=== PATIENT | female | born 1985 | race Caucasian/White ===

== ENCOUNTER 2019-02-10 07:02 | Emergency (ER) | payer OTHER, BC ==
[2019-02-10 07:33] VITALS: BP 124/91; PULSE 88; TEMP 97.8; BMI 31.1
--- NOTE | 2019-02-10 07:59 | PDOC ---
History of Present Illness - General Chief Complaint: Back Pain Stated Complaint: LOWER LEFT SIDE BACK PAIN Time Seen by Provider: 02/10/19 07:59 History Source: Patient - History of Present Illness Occurred: reports: yesterday Severity: reports: moderate, severe Pain Location: reports: back Past History - Past Medical History Allergies/Adverse Reactions: Allergies Allergy/AdvReac Type Severity Reaction Status Date / Time No Known Allergies Allergy Verified 02/10/19 07:21 Home Medications: Ambulatory Orders Cyclobenzaprine HCl [Flexeril 10 mg] 10 mg PO TID #9 tablet 02/10/19 Ibuprofen [Motrin -] 800 mg PO Q6H #30 tablet 02/10/19 Asthma: No Cancer: No Cardiac Disorders: No COPD: No Diabetes: No HTN: No Seizures: No Thyroid Disease: No - Surgical History Abdominal Surgery: Yes (A FALLOPIAN TUBE) - Reproductive History (#): 4 Para: 1 Cervical CA: No Dysfunctional Uterine Bleeding: No Ectopic : Yes (2008 with rt salpingectomy) Endometrial CA: No Polycystic Ovaries: No Therapeutic (s) & number: Yes Tubal Ligation: No Spontaneous : 1 - Immunization History Immunization Up to Date: Yes - Suicide/Smoking/Psychosocial Hx Smoking Status: No Smoking History: Never smoked Have you smoked in the past 12 months: No Number of Cigarettes Smoked Daily: 0 Information on smoking cessation initiated: No Hx Alcohol Use: No Drug/Substance Use Hx: No Substance Use Type: None Hx Substance Use Treatment: No Review of Systems - Review of Systems Constitutional: No: Chills, Fever ABD/GI: No: Nausea, Vomiting, Abdominal cramping : No: Burning, Dysuria, Flank Pain, Hematuria Musculoskeletal: Yes: Back Pain Neurological: No: Numbness, Tingling, Weakness *Physical Exam - Vital Signs Last Vital Signs Temp Pulse Resp BP Pulse Ox 97.8 F 88 16 124/91 100 02/10/19 07:21 02/10/19 07:21 02/10/19 07:21 02/10/19 07:21 02/10/19 07:21 - Physical Exam Comments: 02/10/19 08:25 Refusing to sit in ER as worsens pain General Appearance: Yes: Appropriately Dressed, Mild Distress HEENT: positive: Normal Voice Neck: positive: Supple Respiratory/Chest: negative: Respiratory Distress Musculoskeletal: negative: CVA Tenderness, Vertebral Tenderness Integumentary: positive: Dry, Warm Neurologic: positive: Fully Oriented, Alert, Normal Mood/Affect, Motor Strength 5/5 Medical Decision Making - Medical Decision Making 02/10/19 07:59 33 yo F, no sig hx, 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 here w/ non-radiating mid lower back pain since yesterday, unable to describe, 7/10 and worse w/ movement. Took 400mg motrin yesterday w/ no relief. No trauma but states she carries her gun belt at work which weight 30 pounds. No h/o similar pain. Denies n/v/f/c, dysuria or hematuria. No h/o renal stones see exam M/l MSK back pain No red flags at this time -pain control in ED -dc w/ rx and pmd f/u as needed 02/10/19 08:23 02/10/19 08:25 *DC/Admit/Observation/Transfer Diagnosis at time of Disposition: Low back pain Qualifiers: Chronicity: acute Back pain laterality: unspecified Sciatica presence: without sciatica Qualified Code(s): M54.5 - Low back pain - Discharge Dispostion Disposition: HOME Condition at time of disposition: Good - Prescriptions Prescriptions: Cyclobenzaprine HCl [Flexeril 10 mg] 10 mg PO TID #9 tablet Ibuprofen [Motrin -] 800 mg PO Q6H #30 tablet - Referrals - Patient Instructions Printed Discharge Instructions: Low Back Pain Additional Instructions: Take medications as directed If pain persists, please follow up with your PMD - Post Discharge Activity Forms/Work/School Notes: Back to Work
[2019-02-10] MEDS ORDERED: CYCLOBENZAPRINE HCL 10 MG TABLET (FP) PO ONE (08:00)
[2019-02-10] MEDS ORDERED: KETOROLAC TROMETHAMINE 60 MG/2 ML VIAL IM ONE (08:00)
[2019-02-10] MEDS ORDERED: CYCLOBENZAPRINE HCL 10 MG TABLET (FP) ONE (08:09)
[2019-02-10] MEDS ORDERED: KETOROLAC TROMETHAMINE 60 MG/2 ML VIAL ONE (08:09)
== END 2019-02-10 08:27 | disposition home or self-care (01) ==
LOC: JER 07:02
PROC: 3E03329 Introduction of Other Anti-infective into Peripheral Vein, Percutaneous Approach (ICD-10-PCS; principal; 2019-02-10)
PROC: 3E0333Z Introduction of Anti-inflammatory into Peripheral Vein, Percutaneous Approach (ICD-10-PCS; 2019-02-10)
PROC: 3E033NZ Introduction of Analgesics, Hypnotics, Sedatives into Peripheral Vein, Percutaneous Approach (ICD-10-PCS; 2019-02-10)
DX: N39.0 Urinary tract infection, site not specified (principal)
CPT/HCPCS: 99282-25

== ENCOUNTER 2019-02-11 19:53 | Emergency (ER) | payer OTHER ==
[2019-02-11 20:03] VITALS: BMI 31.1
[2019-02-11] MEDS ORDERED: ACETAMINOPHEN 1000 MG/100 ML VIAL (NON FORMULARY) IVPB ONE (20:29)
[2019-02-11] MEDS ORDERED: SODIUM CHLORIDE 0.9% 500 ML INFUS.BAG IV ONE ×2 (20:29→21:16)
--- NOTE | 2019-02-11 20:40 | PDOC ---
History of Present Illness - General Chief Complaint: Diarrhea Stated Complaint: sore throat/earache/diarrhea Time Seen by Provider: 02/11/19 20:12 - History of Present Illness Initial Comments: 02/11/19 20:39 33-year-old female without comorbidities presents for evaluation of fever chills and body aches times one day Past History - Past Medical History Allergies/Adverse Reactions: Allergies Allergy/AdvReac Type Severity Reaction Status Date / Time No Known Allergies Allergy Verified 02/11/19 20:04 Home Medications: Ambulatory Orders Cephalexin [Keflex] 500 mg PO TID 7 Days #21 capsule 02/11/19 Asthma: No Cancer: No Cardiac Disorders: No COPD: No Diabetes: No HTN: No Seizures: No Thyroid Disease: No - Surgical History Abdominal Surgery: Yes (A FALOPIAN TUBE, ectopic) - Reproductive History (#): 4 Para: 1 Cervical CA: No Dysfunctional Uterine Bleeding: No Ectopic : Yes (2008 with rt salpingectomy) Endometrial CA: No Polycystic Ovaries: No Therapeutic (s) & number: Yes Tubal Ligation: No Spontaneous : 1 - Immunization History Immunization Up to Date: Yes - Suicide/Smoking/Psychosocial Hx Smoking Status: No Smoking History: Never smoked Have you smoked in the past 12 months: No Number of Cigarettes Smoked Daily: 0 Hx Alcohol Use: No Drug/Substance Use Hx: No Substance Use Type: None Hx Substance Use Treatment: No Review of Systems - Review of Systems Constitutional: Yes: Chills, Fever, Malaise, Night Sweats HEENTM: Yes: Ear Pain, Throat Pain, Difficulty Swallowing ABD/GI: Yes: Diarrhea *Physical Exam - Vital Signs Last Vital Signs Temp Pulse Resp BP Pulse Ox 100.7 F H 109 H 16 98/77 98 02/11/19 19:59 02/11/19 19:59 02/11/19 19:59 02/11/19 19:59 02/11/19 19:59 - Physical Exam Comments: 02/11/19 20:39 HEAD: NC/AT EYES: Conjuntiva clear Ears: Canals and TM's normal NOSE: No d/c THROAT: Moist mucous membrances, oral pharanx erythemic with exudate, uvula midline NECK: Supple without adenopathy CARDIAC: S1 S2 LUNGS: CTA Full and Equal breath sounds ABDOMEN: Soft NT ND MS: Full ROM in all joints without edema NEUROLOGIC: No gross sensory or motor deficits, NVID SKIN: Normal color and temperature no lesions or rashes ED Treatment Course - LABORATORY CBC & Chemistry Diagram: 02/11/19 20:45 02/11/19 20:45 Medical Decision Making - Medical Decision Making 02/11/19 22:38 D/W ER attending, hemodynamically stable and afebrile during d/o 02/11/19 22:40 Pt looking and feeling much improved *DC/Admit/Observation/Transfer Diagnosis at time of Disposition: UTI (urinary tract infection) - Discharge Dispostion Disposition: HOME Condition at time of disposition: Stable Decision to Admit order: No - Prescriptions Prescriptions: Cephalexin [Keflex] 500 mg PO TID 7 Days #21 capsule - Referrals Referrals: Tita Manjarrez MD [Staff Physician] - - Patient Instructions Printed Discharge Instructions: Urinary Tract Infection, DI for Urinary Tract Infection (UTI) Additional Instructions: Please take the antibiotics as directed. Return to the emergency room for worsening symptoms. Follow-up with internal medicine in one to 2 days for further evaluation and treatment options. Little and Motrin as directed for fever should you require it - Post Discharge Activity
[2019-02-11] MEDS ORDERED: ACETAMINOPHEN INJECTION 100 ML IVPB ONE (20:50)
[2019-02-11 20:56] LABS: BASO % 0.5 % (0-2.0); EOS % 0.1 % (0-4.5); HEMATOCRIT 37.2 % (32.4-45.2); HEMOGLOBIN 12.5 GM/dL (10.7-15.3); LYMPH % 6.1 % (8-40); MCH 28.6 pg (25.7-33.7); MCHC 33.6 g/dl (32.0-36.0); MEAN CELL VOLUME 85.2 fl (80-96); MEAN PLT VOLUME 8.5 fl (7.5-11.1); MONO % 4.5 % (3.8-10.2); NEUT % 88.8 % (42.8-82.8); PLATELET COUNT 221 K/MM3 (134-434); RBC 4.37 M/mm3 (3.60-5.2); RDW 16.9 % (11.6-15.6); WHITE BLOOD COUNT 14.5 K/mm3 (4.0-10.0)
[2019-02-11 20:57] LABS: EPI CELLS 10.2 /HPF (0-5/HPF); URINE APPEARANCE CLEAR; URINE BILIRUBIN NEGATIVE (NEGATIVE); URINE CASTS 15 /hpf (0-8); URINE COLOR YELLOW; URINE GLUCOSE (UA) NEGATIVE (NEGATIVE); URINE KETONE 3+ (NEGATIVE); URINE LEUK ESTERASE 1+ (NEGATIVE); URINE NITRITE NEGATIVE (NEGATIVE); URINE PROTEIN NEGATIVE (NEGATIVE); URINE RBC 6 /hpf (0-4); URINE WBC 12 /hpf (0-5)
[2019-02-11 20:58] LABS: HCG,QUALITATIVE URINE Negative
[2019-02-11] MEDS ORDERED: CEFTRIAXONE 1,000 MG in DEXTROSE 5%-WATER - 50 ML IVPB ONE (21:15)
[2019-02-11 21:17] LABS: ALBUMIN 4.1 g/dl (3.4-5.0); ALK PHOS 72 U/L (45-117); ANION GAP 8 MMOL/L (8-16); BILIRUBIN,TOTAL 0.4 mg/dL (0.2-1); BLOOD UREA NITROGEN 9 mg/dL (7-18); CALCIUM 8.6 mg/dL (8.5-10.1); CHLORIDE 104 mmol/L (98-107); CO2 24 mmol/L (21-32); CREATININE 0.8 mg/dL (0.55-1.3); GLUCOSE,RANDOM 90 mg/dL (74-106); POTASSIUM 3.9 mmol/L (3.5-5.1); SGOT/AST 15 U/L (15-37); SGPT/ALT 21 U/L (13-61); SODIUM 135 mmol/L (136-145); TOT PROT 8.3 g/dl (6.4-8.2)
[2019-02-11] MEDS ORDERED: CEFTRIAXONE 1 GM/50 ML BAG ONE (21:19)
[2019-02-11] MEDS ORDERED: KETOROLAC TROMETHAMINE 30 MG/1 ML VIAL IVPUSH ONE (21:43)
[2019-02-11] MEDS ORDERED: KETOROLAC TROMETHAMINE 30 MG/1 ML VIAL ONE (21:44)
[2019-02-11 22:45] VITALS: BP 110/65; PULSE 101; TEMP 99.4
== END 2019-02-11 22:51 | disposition home or self-care (01) ==
LOC: JERFT 19:53
DX: N39.0 Urinary tract infection, site not specified (principal)
CPT/HCPCS: 36415; 80053; 81003; 84703; 85025; 87070; 87086; 87804; 87880; 99281-25; J0131

== ENCOUNTER 2022-03-03 00:01 | Emergency (ER) | payer OTHER, BC ==
[2022-03-03 00:36] VITALS: BP 110/67; PULSE 109; TEMP 98; BMI 30.2
[2022-03-03] MEDS ORDERED: DIPHTH,PERTUSS(ACELL),TET 0.5 ML DISP.SYRIN IM ONE ×2 (01:18→01:23)
== END 2022-03-03 02:09 | disposition home or self-care (01) ==
LOC: JER 00:01
PROC: 0HQ0XZZ Repair Scalp Skin, External Approach (ICD-10-PCS; principal; 2022-03-03)
PROC: 3E0234Z Introduction of Serum, Toxoid and Vaccine into Muscle, Percutaneous Approach (ICD-10-PCS; 2022-03-03)
DX: S01.01XA Laceration without foreign body of scalp, initial encounter (principal); W20.8XXA Other cause of strike by thrown, projected or falling object, initial encounter
CPT/HCPCS: 70450-TC; 72125-TC; 90715; 99284-25